=== PATIENT | female | born 1990 | race Caucasian/White ===

== ENCOUNTER 2024-07-22 13:30 | Inpatient (IN) | payer MEDICAID, SELFPAY ==
[2024-07-22] VITALS (17 sets, daily range): BP systolic 143–214; BP diastolic 92–119; PULSE 89–116; RESP 15–23; TEMP 36.4–36.7; O2SAT 96–99; BMI 40.1
--- NOTE | 2024-07-22 13:38 | CT_ITS ---
PROCEDURE: SOFT TISSUE NECK WITH CONTRAST 07/22/2024 REASON FOR EXAM: CONCERN FOR LUDEWIG'S ANGINA TECHNIQUE: CT of the soft tissues of the neck from the orbits to the upper mediastinum with intravenous contrast. CONTRAST: Isovue-300 VOLUME: 100 mL One or more dose reduction techniques were used (e.g., Automated exposure control, adjustment of the mA and/or kV according to patient size, use of iterative reconstruction technique). RADIATION DOSE SUMMARY: CTDlvol: 17.45 mGy DLP: 702.03 mGycm COMPARISON: None FINDINGS: Airway: Midline and patent. Salivary glands: Unremarkable. Lymph nodes: No cervical lymphadenopathy. Thyroid: Unremarkable. Vasculature: Carotid arteries and internal jugular veins are unremarkable. Orbits: Unremarkable at visualized levels. Paranasal sinuses and mastoids: Grossly clear at visualized levels. Lung apices: Clear. Upper mediastinum: Visualized mediastinum is unremarkable. Bones: Unremarkable. Other: CT/Soft Tissue Neck WITH Contrast IMPRESSION: NORMAL CONTRAST-ENHANCED CT OF THE SOFT TISSUES OF THE NECK. Reading Location: [place] [id number]
--- NOTE | 2024-07-22 13:39 | EKG12_ITS ---
Test Reason : Blood Pressure : */* mmHG Vent. Rate : 105 BPM Atrial Rate : 105 BPM P-R Int : 150 ms QRS Dur : 78 ms QT Int : 348 ms P-R-T Axes : 21 36 26 degrees QTcB Int : 459 ms Sinus tachycardia Otherwise normal ECG Confirmed by Nilton Moreau ([id number]), index editor CAROLINE VELÁSQUEZ ([id number]) on 07/23/2024 10:14:53 AM Referred By: Confirmed By: Nilton Moreau
--- NOTE | 2024-07-22 13:43 | EX.ED.DYSGE1 ---
HPI History of Present Illness Chief Complaint: Edema Detail of Chief Complaint: Concern with swallowing and change in voice Informant: patient Onset/Context/Timing Onset: Today Context: Sudden Onset Timing: Continuous Quality: Complains of dental pain lower front teeth Location: Swelling noted this morning. Current Severity: Moderate Maximum Severity: Moderate Worsened by: Concern patient has Storm's angina Relieved by: Nothing Associated Symptoms Associated Symptoms: Patient is flushed. She states she is normally flushed. Blood pressure is Narrative Narrative: Patient is a 33-year-old woman. She has history of hypertension. She does not take any blood pressure medicine and 6 months. She has allergy to amoxicillin/penicillin with hives. She has been having dental pain for a couple of days. This morning she noted that she is having trouble speaking and swallowing. Patient states she has not taken her blood pressure meds 6 months. She denies headache. Eye double vision blurred vision loss of vision. She denies chest discomfort or back pain. She denies shortness of breath or difficulty breathing. She does report nausea without vomiting diarrhea. She denies paresthesia, anesthesia or motor weakness upper or lower extremity. Denies trouble with balance or coordination. She was unaware that she had facial swelling until the triage nurse made a comment to her. Prior similar symptoms: No Recent Illness/Hospitalization: No PFSH PFSH Medical History HTN (hypertension) Home Medications ?Medication ?Instructions ?Recorded ?Last Taken ?Type gabapentin 100 mg capsule 200 mg PO .qh4 PRN pain 07/22/24 Unknown History Allergy/AdvReac Type Severity Reaction Status Date / Time amoxicillin (From Augmentin) Allergy unknown Verified 07/22/24 13:38 clavulanic acid (From Allergy unknown Verified 07/22/24 13:38 Augmentin) Social History Smoking Status: Never smoker ROS ROS ED Constitutional Constitutional ED: Denies chills, fever(s), subjective, sweats or weight loss Eyes Eyes: Denies blurry vision, change in vision or diplopia ENT ENT ED: Reports other Details: Swelling under her tongue and difficulty swallowing ; Denies ear pain, rhinorrhea or sore throat Cardiovascular Cardiovascular: Denies chest pain, orthopnea, palpitations or paroxysmal nocturnal dyspnea Respiratory/Chest Respiratory/Chest: Denies cough, dyspnea, dyspnea on exertion, orthopnea or paroxysmal nocturnal dyspnea Gastrointestinal Gastrointestinal: Reports nausea; Denies abdominal pain, diarrhea, melena or vomiting Genitourinary Genitourinary ED: Denies dysuria, hematuria or urinary frequency Musculoskeletal Musculoskeletal: Denies arthralgias or myalgias Integumentary Reports rash Neurologic Neurologic: Denies headache(s), paresthesias or weakness Endocrine Endocrinology: Denies cold intolerance or heat intolerance Hematologic/Lymphatic Hematologic/Lymphatic: Reports systems reviewed and no addt'l complaints, except as documented EXAM Physical Exam Const Vital Signs: 07/22/24 13:32 07/22/24 13:35 07/22/24 13:37 Temperature 98.1 F Temperature Source Temporal Pulse Rate 116 H Respiratory Rate 21 H Respiratory Effort Normal Non-Labored Respiratory Pattern Normal Blood Pressure 214/117 H Blood Pressure Mean 149 Pulse Ox 99 Oxygen Delivery Method Room Air 07/22/24 13:45 07/22/24 14:30 07/22/24 14:45 Temperature Temperature Source Pulse Rate 106 H 103 H 95 Respiratory Rate 16 18 22 H Respiratory Effort Respiratory Pattern Blood Pressure 187/113 H 179/115 H 170/109 H Blood Pressure Mean 132 136 126 Pulse Ox 98 97 96 Oxygen Delivery Method 07/22/24 15:00 07/22/24 15:30 07/22/24 16:00 Temperature Temperature Source Pulse Rate 96 93 93 Respiratory Rate 17 19 H 23 H Respiratory Effort Respiratory Pattern Blood Pressure 143/92 H 180/118 H 170/119 H Blood Pressure Mean 108 135 133 Pulse Ox 97 97 97 Oxygen Delivery Method 07/22/24 16:30 Temperature Temperature Source Pulse Rate 93 Respiratory Rate 21 H Respiratory Effort Respiratory Pattern Blood Pressure 177/105 H Blood Pressure Mean 124 Pulse Ox 97 Oxygen Delivery Method Positive well nourished and well developed General Appearance ED: well developed; Negative for NAD or pallor HEENT Reports moist mucous membranes HEENT Narrative: Patient has swelling under the floor of her tongue. She has very poor dentition with dental caries and periodontal disease as well as gingivitis. The floor of her mouth is very firm. There is swelling submental region. There is no drooling. Patient has swelling of her face. There is erythema of her face. There is no erythema of her neck torso or extremities. Eyes PERRL and EOMs intact bilaterally General Eye ED: Negative for pale conjunctiva or scleral icterus Neck no lymphadenopathy, supple and no JVD Neck Narrative: Trachea is midline. There is no inspiratory expiratory stridor. Chest Wall inspection of chest normal and palpation of chest normal Resp normal respiratory effort and clear to auscultation bilaterally Cardio regular rate, regular rhythm, S1 normal heart sound, S2 normal heart sound and no murmurs GI normal to inspection, nondistended, normoactive bowel sounds, non-tender, non-distended and no masses; Negative for hepatosplenomegaly Palpation: soft Back/Spine no CVA tenderness Extremity normal to inspection General Extremety ED: Negative for edema or tenderness General Extremity: Negative for edema Neuro oriented x3, CN's II-XII intact bilaterally and no sensory deficits noted Sensorium / Orientation: alert Motor Exam: strength 5/5 throughout Psych Mood & Affect: anxious and tearful Skin Skin Narrative: Erythema of her face with soft tissue swelling. General Skin Exam: Negative for elasticity normal, jaundice or pallor MDM MDM MDM Narrative Medical decision making narrative: Patient was told I am concerned that she may have Ludewig's angina. Patient states she googled her symptoms and that was the differential. She has dental caries probable infection. There is facial swelling this may represent cellulitis. Because of her allergy to penicillin she was treated with clindamycin. Will obtain CT of the neck with IV contrast to determine if she has an abscess and if this is amenable to being drained. Her blood pressure is also elevated due to noncompliance of her meds. Will monitor this. If there is no improvement we will treat her blood pressure with IV antihypertensive meds. She has been made n.p.o. Nurse was asked to bring the airway cart into the room. History & Record Review Additional record(s) reviewed:: No prior records Lab Data Attestation: I reviewed the patient's lab results. Lab results narrative: White count is elevated 12.7 thousand. There is no shift. Labs: Laboratory Results - last 24 hr 07/22/24 07/22/24 07/22/24 13:44 15:10 15:12 WBC 12.7 H RBC 5.46 H Hgb 15.5 H Hct 45.4 MCV 83.2 MCH 28.4 MCHC 34.1 RDW Std Deviation 41.6 RDW Coeff of Mame 13.9 Plt Count 400 MPV 10.2 Immature Gran % (Auto) 0.400 Neut % (Auto) 68.0 Lymph % (Auto) 19.3 [place] % (Auto) 9.8 Eos % (Auto) 1.6 Baso % (Auto) 0.9 Absolute Neuts (auto) 8.7 H Absolute Lymphs (auto) 2.46 Nucleated RBC % 0 Sodium 135 Potassium 3.9 Chloride 100 Carbon Dioxide 24.6 Anion Gap 11 BUN 9 Creatinine 0.76 Estim Creat Clear Calc 137.34 Est GFR (MDRD) Non-Af 106 BUN/Creatinine Ratio 12.4 Glucose 167 H Hemoglobin A1c 8.5 H Lactic Acid 1.6 Calcium 9.6 Total Bilirubin 0.49 AST 39 H ALT 42 H Alkaline Phosphatase 117 H Total Protein 8.1 Albumin 4.2 Globulin 3.9 Albumin/Globulin Ratio 1.1 Urine Color Straw Urine Clarity Sl. Cloudy Urine pH 6.5 Ur Specific [place] 1.010 Urine Protein 15 H Urine Glucose (UA) Normal Urine Ketones Negative Urine Occult Blood Negative Urine Nitrite Negative Urine Bilirubin Negative Urine Urobilinogen Normal Ur Leukocyte Esterase 500 H Urine RBC 0 SEEN Urine WBC 25-50 SEEN Ur Squamous Epith Cells 5-10 SEEN Ur Transition Epith Cell 0-5 SEEN Urine Bacteria 1+ Urine Mucus 0 SEEN Radiography Diagnostic Testing: Clinical Impression(s) from Imaging Studies Soft Tissue Neck CT 07/22/24 13:38 IMPRESSION: NORMAL CONTRAST-ENHANCED CT OF THE SOFT TISSUES OF THE NECK. Reading Location: [place] [id number] was reviewed. I see no evidence of abscess. I do not see any obvious inflammatory changes. The radiologist was contacted because clinically I am concerned patient has an infection. He informed me that he looked again at the scan and there is no abnormality. EKG Initial EKG: Attestation: I personally reviewed and interpreted this EKG as follows: Interpretation: Sinus Tachycardia Management Discussion w/another healthcare provider: Hospitalist (Spoke with the hospitalist. Full admit MedSurg. He was made aware of patient's history, physical and results. He also was made aware that she is not been compliant with her blood pressure medication.) Discharge Plan Dx/Rx/DC Orders Clinical Impression: Abscess, dental, Dental caries extending into pulp, Dental caries extending into dentine, Periodontal disease, Gingivitis, Hypertensive urgency, Noncompliance with medication regimen, Sinus tachycardia seen on pvc monitor Disposition Disposition: Acute Care Hospital [facility] Discharge Date/Time: 07/22/24 18:27
[2024-07-22 13:57] LABS: Absolute Lymphocyte Count 2.46 X10^3/uL (0.83-4.51); Absolute Neutrophil Count 8.7 X10^3/uL (2.0-7.7); Basophil# 0.12 X10^3/uL; Basophil% 0.9 % (0-1); Eosinophils% 1.6 % (0-5); Hematocrit 45.4 % (37-47); Hemoglobin 15.5 g/dL (12.0-15.0); Lymphocyte # 2.46 X10^3/ul (0.83-4.51); Lymphocyte % 19.3 % (19-41); Mean Corp Hgb Conc 34.1 g/dL (32-36); Mean Corpuscular Hgb 28.4 pg (27.0-32.0); Mean Corpuscular Volume 83.2 fL (81-99); Mean Platelet Vol. 10.2 fl (6.2-12.0); Monocyte# 1.25 X10^3/uL; Monocyte% 9.8 % (0-10); NRBC Flagged by Analyzer 0 % (0-5); Neutrophil # 8.66 X10^3/uL (2.7-7.7); Platelet Count 400 K/mm3 (150-450); RBC Distribution Width CV 13.9 % (11.6-14.6); RBC Distribution Width SD 41.6 fl (35.1-43.9); Red Blood Count 5.46 M/mm3 (4.2-5.4); White Blood Count 12.7 K/mm3 (4.4-11.0)
[2024-07-22] MEDS: Clindamycin 900 MG/50 ML BAG 75 MG IV (14:17)
[2024-07-22 15:08] LABS: Lactic Acid 1.6 mmol/L (0.0-2.0)
[2024-07-22 15:17] LABS: Mucous, Urine 0 SEEN /hpf (<or=2+); Red Blood Cells-Urine 0 SEEN /hpf (0-5)
[2024-07-22 15:32] LABS: Color, Urine Straw (Yellow); Glucose, Dipstick Normal (Normal); Ketone-Dipstick Negative (Negative); Leukocyte Esterase-Dipstick 500 /ul (Negative); Nitrite-Dipstick Negative (Negative); Occult Blood-Urine Negative /ul (Negative); Protein-Dipstick 15 mg/dl (Negative); Urine Bilirubin Dipstick Negative (Negative); Urine Clarity Sl. Cloudy (Clear); Urine Urobilinogen Normal (Normal); Urine pH 6.5 (5.0 - 8.0)
[2024-07-22 15:44] LABS: ALB/GLOB Ratio 1.1 RATIO (0.9-2.4); AST(SGOT) 39 U/L (<=31); Alanine Aminotransfer ALT/SGPT 42 U/L (<=34); Albumin, Serum 4.2 g/dL (3.5-5.0); Alkaline Phosphatase 117 U/L (35-104); Anion Gap 11 (5-15); BUN 9 mg/dL (4-19); BUN/Creat Ratio 12.4 RATIO (10-20); Calcium,Total 9.6 mg/dL (7.6-11.0); Carbon Dioxide 24.6 mmol/L (21.0-32.0); Chloride 100 mmol/L (98-108); Creatinine, Serum 0.76 mg/dL (0.70-1.20); EST Glomerular Filtration Rate 106 (>60); Estimated Creatinine Clearance 137.34 ml/min (50-250); Globulin 3.9 g/dL (2.2-4.2); Glucose 167 mg/dL (70-99); Potassium 3.9 mmol/L (3.3-5.1); Protein, Total 8.1 g/dL (5.9-8.4); Sodium Level 135 mmol/L (133-145); Total Bilirubin 0.49 mg/dL (0.00-1.30)
--- NOTE | 2024-07-22 16:54 | HP.PCM.HOS_ITS ---
HPI - General General Date of Admission: 07/22/24 Date of Service: 07/22/24 Chief Complaint: Dental infection with difficulty swallowing HPI Narrative MIRACLE ALMANZAR, is a 33 F who presented to [facility] ED on 07/22/2024 with concern for dental infection and difficulty with swallowing. I saw the patient at bedside in the ED. Patient has history of periodontal disease with dental caries. She has now been having worsening dental pain for the past few days. Today she noticed that she was having difficulty with swallowing and speaking so she came in for further evaluation. She has history of hypertension as well but has not taken her home blood pressure medications for over 6 months. She denies any chest pain or shortness of breath. Was noted by ED physician to have oropharyngeal fullness on physical exam. However, CT soft tissue neck showed no signs of swelling or concern for Storm's angina. Given her symptoms and concern for possibly developing Storm's angina, she was given a dose of IV antibiotics and hospitalist was contacted for admission. When I saw the patient, she had facial flushing noted but otherwise sitting back comfortably in bed, conversing normally and in no acute distress. Noted that she did feel slightly improved now compared to earlier today. She still has not eaten or drink anything today for fear of choking. Her last food was yesterday. She denies any headache or dizziness. Denies any fevers or chills. No other acute concerns at this time. [facility] Medical History HTN (hypertension) Home Medications ?Medication ?Instructions ?Recorded ?Last Taken ?Type gabapentin 100 mg capsule 200 mg PO .qh4 PRN pain 07/12 03/07 Unknown History Allergy/AdvReac Type Severity Reaction Status Date / Time amoxicillin (From Augmentin) Allergy unknown Verified 07/22/24 13:38 clavulanic acid (From Allergy unknown Verified 07/22/24 13:38 Augmentin) Social History Smoking Status: Former smoker ROS Constitutional Constitutional: Reports fatigue; Denies chills, fever(s) or weakness Eyes Eyes: Denies blurry vision or change in vision ENT HEENT: Reports dysphagia, sore throat and other Cardiovascular Cardiovascular: Denies chest pain, dyspnea on exertion, edema or lightheadedness Respiratory/Chest Respiratory/Chest: Denies cough or shortness of breath at rest Gastrointestinal Gastrointestinal: Denies abdominal pain Musculoskeletal Musculoskeletal: Denies arthralgias or myalgias Vital Signs Vital Signs Vital Signs: 07/22/24 13:32 07/22/24 13:35 07/22/24 13:37 Temperature 98.1 F Temperature Source Temporal Pulse Rate 116 H Respiratory Rate 21 H Respiratory Effort Normal Non-Labored Respiratory Pattern Normal Blood Pressure 214/117 H Blood Pressure Mean 149 Pulse Ox 99 Oxygen Delivery Method Room Air 07/22/24 13:45 07/22/24 14:30 07/22/24 14:45 Temperature Temperature Source Pulse Rate 106 H 103 H 95 Respiratory Rate 16 18 22 H Respiratory Effort Respiratory Pattern Blood Pressure 187/113 H 179/115 H 170/109 H Blood Pressure Mean 132 136 126 Pulse Ox 98 97 96 Oxygen Delivery Method 07/22/24 15:00 07/22/24 15:30 07/22/24 16:00 Temperature Temperature Source Pulse Rate 96 93 93 Respiratory Rate 17 19 H 23 H Respiratory Effort Respiratory Pattern Blood Pressure 143/92 H 180/118 H 170/119 H Blood Pressure Mean 108 135 133 Pulse Ox 97 97 97 Oxygen Delivery Method 07/22/24 16:30 Temperature Temperature Source Pulse Rate 93 Respiratory Rate 21 H Respiratory Effort Respiratory Pattern Blood Pressure 177/105 H Blood Pressure Mean 124 Pulse Ox 97 Oxygen Delivery Method Weight Weight: 116.12 kg Body Mass Index (BMI) 40.1 Physical Exam Const alert, oriented x3 and no apparent distress Constitutional Narrative: Younger female, class III obesity, facial flushing noted, poor dentition noted, otherwise sitting up comfortably in bed, answering questions appropriately, in no acute distress. General Appearance: cooperative and comfortable HEENT normocephalic, head/scalp atraumatic, hearing grossly normal bilaterally, nasal mucous membranes and turbinates normal and moist oral mucous membranes HEENT Narrative: No significant oropharyngeal erythema or swelling noted. Poor dentition but no overt abscess noted. Eyes PERRL, EOMs intact bilaterally and conjunctivae normal Neck full ROM and supple Chest inspection of chest normal Resp normal respiratory effort, normal air movement, no use of accessory muscles and clear to auscultation bilaterally Cardio regular rate, regular rhythm, no murmurs and peripheral pulses 2+ throughout GI normal to inspection, nondistended, normoactive bowel sounds, soft to palpation, non-tender and non-distended Back/Spine normal ROM Extremity normal to inspection, full ROM and no pedal edema Skin no rashes or lesions noted Psych mental status grossly normal Results Lab / Micro Data 07/22/24 13:44 07/22/24 15:12 Labs: Laboratory Results - last 24 hr 07/22/24 13:44: WBC 12.7 H, RBC 5.46 H, Hgb 15.5 H, Hct 45.4, MCV 83.2, MCH 28.4, MCHC 34.1, RDW Std Deviation 41.6, RDW Coeff of Mame 13.9, Plt Count 400, MPV 10.2, Immature Gran % (Auto) 0.400, Neut % (Auto) 68.0, Lymph % (Auto) 19.3, [place] % (Auto) 9.8, Eos % (Auto) 1.6, Baso % (Auto) 0.9, Absolute Neuts (auto) 8.7 H, Absolute Lymphs (auto) 2.46, Nucleated RBC % 0, Lactic Acid 1.6 07/22/24 15:10: Urine Color Straw, Urine Clarity Sl. Cloudy, Urine pH 6.5, Ur Specific [place] 1.010, Urine Protein 15 H, Urine Glucose (UA) Normal, Urine Ketones Negative, Urine Occult Blood Negative, Urine Nitrite Negative, Urine Bilirubin Negative, Urine Urobilinogen Normal, Ur Leukocyte Esterase 500 H 07/22/24 15:12: Sodium 135, Potassium 3.9, Chloride 100, Carbon Dioxide 24.6, Anion Gap 11, BUN 9, Creatinine 0.76, Estim Creat Clear Calc 137.34, Est GFR (MDRD) Non-Af 106, BUN/Creatinine Ratio 12.4, Glucose 167 H, Calcium 9.6, Total Bilirubin 0.49, AST 39 H, ALT 42 H, Alkaline Phosphatase 117 H, Total Protein 8.1, Albumin 4.2, Globulin 3.9, Albumin/Globulin Ratio 1.1 Imaging Radiology Impression Soft Tissue Neck CT 07/22/24 13:38 IMPRESSION: NORMAL CONTRAST-ENHANCED CT OF THE SOFT TISSUES OF THE NECK. Reading Location: [facility] Assessment & Plan Assessment/Plan (1) Periodontal disease: PLAN: Plan Patient is a 33-year-old female who presented [facility] ED on 07/22/2024 with concern for dental infection with difficulty swallowing. 1. Concern for dental infection with developing Storm's angina ? Admit under inpatient status to [facility]. CT soft tissue neck with no swelling noted or concern for Storm angina. Poor dentition noted but no overt infection noted. However, will treat with IV ceftriaxone and Flagyl for now. Will keep patient on full liquid diet and speech therapy consulted. 2. Poorly controlled hypertension ? BP elevated to the 170s 180s systolic on admission. Has previously been on an antihypertensive at home but has not taken this for over 6 months, unclear which antihypertensive agent. Will start amlodipine 5 mg daily. IV hydralazine ordered for SBP greater than 170 as well. 3. Class II obesity ? BMI 39 on admit. Encouraged weight loss. DVT prophylaxis: Lovenox CODE STATUS: Full code, verified Expected disposition: Home, 2 to 3 days Total clinical time spent by myself addressing the patient's medical issues, reviewing all the data, and collaborating with patient's care team: 55 minutes. Charges/Coding Visit Charges Inpatient E&M: 58636 Init Hosp L2
[2024-07-22 17:11] LABS: Squamous Epithelial Cells - UA 5-10 SEEN /hpf (5-10); White Blood Cells 25-50 SEEN /hpf (0-5)
[2024-07-22 17:12] LABS: Bacteria 1+ /hpf (None Seen); Transitional Epithelial - Ur 0-5 SEEN /hpf (0-5)
[2024-07-22] MEDS: Enalaprilat 1.25 MG/ML Vial 0.625 MG IV (17:24)
[2024-07-22 17:57] LABS: Hemoglobin A1c 8.5 % (<=5.6)
--- NOTE | 2024-07-22 19:08 | CM.ED ---
Social Work Reason for visit: No PCP Patient verified that she does not currently have a PCP. Patient reports to originally living in [place], then moved to [place], and then to [place]. Patient reports she has not found a PCP. [facility] provider list given. Patient also expressed need for a dentist. Dental list was also provided. No further needs identified at this time. Kianna Wilkins, [employer] PROGRAMMER ANALYST, [employer] VAT TENDER
[2024-07-22] MEDS: Ceftriaxone 2 GM in 0.9% Normal Saline (50mL MB+) 50 ML IV (20:15)
[2024-07-22] MEDS: 0.9% Normal Saline (250mL Bag) 250 ML 15 ML IV (20:15)
[2024-07-22] MEDS: metroNIDAZOLE 500 MG/100 ML BAG 100 MG IV (21:11)
[2024-07-22] MEDS: Acetaminophen 325 MG Tablet 650 MG PO (23:35)
[2024-07-23] MEDS: amLODIPine 5 MG Tablet PO ×2 (01:19→09:42)
[2024-07-23] MEDS: metroNIDAZOLE 500 MG/100 ML BAG 100 MG IV ×3 (06:24→21:12)
[2024-07-23 06:31] LABS: Hematocrit 46.3 % (37-47); Hemoglobin 15.8 g/dL (12.0-15.0); Mean Corp Hgb Conc 34.1 g/dL (32-36); Mean Corpuscular Hgb 28.7 pg (27.0-32.0); Mean Corpuscular Volume 84.2 fL (81-99); Mean Platelet Vol. 10.1 fl (6.2-12.0); Platelet Count 353 K/mm3 (150-450); RBC Distribution Width CV 13.8 % (11.6-14.6); RBC Distribution Width SD 42.7 fl (35.1-43.9); White Blood Count 8.8 K/mm3 (4.4-11.0)
[2024-07-23 06:58] LABS: Anion Gap 12 (5-15); BUN 6 mg/dL (4-19); BUN/Creat Ratio 9.2 RATIO (10-20); Calcium,Total 9.4 mg/dL (7.6-11.0); Carbon Dioxide 24.2 mmol/L (21.0-32.0); Chloride 101 mmol/L (98-108); EST Glomerular Filtration Rate 116 (>60); Estimated Creatinine Clearance 149.11 ml/min (50-250); Glucose 187 mg/dL (70-99); Sodium Level 137 mmol/L (133-145)
[2024-07-23 09:17] VITALS: BP 177/103; PULSE 98; RESP 16; TEMP 36.6; O2SAT 99
[2024-07-23 09:36] VITALS: O2SAT 98
[2024-07-23] MEDS: Ceftriaxone 2 GM in 0.9% Normal Saline (50mL MB+) 50 ML IV (09:42)
--- NOTE | 2024-07-23 11:12 | PCM.PN.HOSP ---
Reason for Visit Reason for Visit: Diagnoses Periodontal disease, unspecified (07/22/24) Subjective Subjective Saw patient at bedside this morning. Patient appeared similar today to yesterday. Has been tolerating full liquid diet well. Has not worked with speech therapy yet. Does continue to feel some fullness/swelling of her throat and this is concerning for her, but it has not worsened at all since yesterday. No other new concerns today. Objective Data Objective Data Vital Signs: Vital Signs Temp Pulse Resp BP Pulse Ox O2 Del Method 97.9 F 98 16 177/103 H 98 Room Air 07/23/24 09:17 07/23/24 09:17 07/23/24 09:17 07/23/24 09:17 07/23/24 09:36 07/23/24 09:36 Oxygen Delivery Method Room Air Weight: 116.12 kg Body Mass Index (BMI) 40.1 Intake & Output: Intake and Output for Last 24 Hours 07/21/24 07/22/24 07/23/24 23:59 23:59 23:59 Intake Total 200 / 900 1052.25 / 1052.25 Balance 200 / 900 1052.25 / 1052.25 Lab / Micro Data 07/23/24 06:17 07/23/24 06:17 Labs: Laboratory Results - last 24 hr 07/22/24 13:44: WBC 12.7 H, RBC 5.46 H, Hgb 15.5 H, Hct 45.4, MCV 83.2, MCH 28.4, MCHC 34.1, RDW Std Deviation 41.6, RDW Coeff of Mame 13.9, Plt Count 400, MPV 10.2, Immature Gran % (Auto) 0.400, Neut % (Auto) 68.0, Lymph % (Auto) 19.3, Rich % (Auto) 9.8, Eos % (Auto) 1.6, Baso % (Auto) 0.9, Absolute Neuts (auto) 8.7 H, Absolute Lymphs (auto) 2.46, Nucleated RBC % 0, Hemoglobin A1c 8.5 H, Lactic Acid 1.6 07/22/24 15:10: Urine Color Straw, Urine Clarity Sl. Cloudy, Urine pH 6.5, Ur Specific Haskell 1.010, Urine Protein 15 H, Urine Glucose (UA) Normal, Urine Ketones Negative, Urine Occult Blood Negative, Urine Nitrite Negative, Urine Bilirubin Negative, Urine Urobilinogen Normal, Ur Leukocyte Esterase 500 H, Urine RBC 0 SEEN, Urine WBC 25-50 SEEN, Ur Squamous Epith Cells 5-10 SEEN, Ur Transition Epith Cell 0-5 SEEN, Urine Bacteria 1+, Urine Mucus 0 SEEN 07/22/24 15:12: Sodium 135, Potassium 3.9, Chloride 100, Carbon Dioxide 24.6, Anion Gap 11, BUN 9, Creatinine 0.76, Estim Creat Clear Calc 137.34, Est GFR (MDRD) Non-Af 106, BUN/Creatinine Ratio 12.4, Glucose 167 H, Calcium 9.6, Total Bilirubin 0.49, AST 39 H, ALT 42 H, Alkaline Phosphatase 117 H, Total Protein 8.1, Albumin 4.2, Globulin 3.9, Albumin/Globulin Ratio 1.1 07/23/24 06:17: WBC 8.8, RBC 5.50 H, Hgb 15.8 H, Hct 46.3, MCV 84.2, MCH 28.7, MCHC 34.1, RDW Std Deviation 42.7, RDW Coeff of Mame 13.8, Plt Count 353, MPV 10.1, Sodium 137, Potassium 4.0, Chloride 101, Carbon Dioxide 24.2, Anion Gap 12, BUN 6, Creatinine 0.70, Estim Creat Clear Calc 149.11, Est GFR (MDRD) Non-Af 116, BUN/Creatinine Ratio 9.2 L, Glucose 187 H, Calcium 9.4 Radiography Diagnostic Testing: Radiology Impression Soft Tissue Neck CT 07/22/24 13:38 IMPRESSION: NORMAL CONTRAST-ENHANCED CT OF THE SOFT TISSUES OF THE NECK. Reading Location: [facility] Physical Exam Const alert, oriented x3 and no apparent distress Constitutional Narrative: Younger female, class III obesity, poor dentition noted, energy improved today, sitting up comfortably in bed, answering questions appropriately, in no acute distress. General Appearance: cooperative and comfortable HEENT normocephalic, head/scalp atraumatic, hearing grossly normal bilaterally, nasal mucous membranes and turbinates normal and moist oral mucous membranes HEENT Narrative: No significant oropharyngeal erythema or swelling noted. Poor dentition but no overt abscess noted. Stable. Eyes PERRL, EOMs intact bilaterally and conjunctivae normal Neck full ROM and supple Chest inspection of chest normal Resp normal respiratory effort, normal air movement, no use of accessory muscles and clear to auscultation bilaterally Cardio regular rate, regular rhythm, no murmurs and peripheral pulses 2+ throughout GI normal to inspection, nondistended, normoactive bowel sounds, soft to palpation, non-tender and non-distended Back/Spine normal ROM Extremity normal to inspection, full ROM and no pedal edema Skin no rashes or lesions noted Psych mental status grossly normal Assessment & Plan Assessment/Plan (1) Periodontal disease: PLAN: Plan Patient is a 33-year-old female who presented [facility] ED on 07/22/2024 with concern for dental infection with difficulty swallowing. 1. Concern for dental infection with developing Storm's angina ? Speech therapy consulted. CT soft tissue neck with no swelling noted or concern for Storm angina. Poor dentition noted but no overt infection noted. Has been tolerating liquid diet well. Continue treatment with IV ceftriaxone and Flagyl. Appreciate speech therapy recommendations. Hopeful that patient will be able to advance diet to regular diet soon in preparation for possible discharge home tomorrow. 2. Poorly controlled hypertension ? BP elevated to the 170s to 180s systolic on admission. Has previously been on an antihypertensive at home but has not taken this for over 6 months, unclear which antihypertensive agent. Started on amlodipine 5 mg daily with only mild improvement to the 160s systolic. Will start losartan 50 mg daily today. Continue IV hydralazine for SBP greater than 170. 3. Class II obesity ? BMI 39 on admit. Encouraged weight loss. 4. New onset type 2 diabetes mellitus ? A1c 8.5% on admit. Glucose values have been in the 160s to 180s on BMP. Will hold on any treatment during this hospitalization but recommend close outpatient follow-up with her primary care doctor on discharge. DVT prophylaxis: Lovenox CODE STATUS: Full code, verified Expected disposition: Home, 1 to 2 days Total clinical time spent by myself addressing the patient's medical issues, reviewing all the data, and collaborating with patient's care team: 35 minutes. Charges/Coding Visit Charges Inpatient E&M: 09220 Subs Hosp L2
--- NOTE | 2024-07-23 12:45 | CASEMGMT ---
LOPEZ BAIG Assessment: Face to Face with pt for initial transition planning/care coordination assessment. LOPEZ BAIG introduced self and role at [facility], pt voices understanding and consents to assessment. Pt is A&O x4 and answers all questions appropriately at this time. Pt sitting up in bed in no distress. Care providers, pharmacy, and demographics verified/updated. Admitting Dx: dental infection with concern for developing ludwigs Strata Score: 1 PCP:Pt provided local healthcare directory pamphlet from ER. Denies need for assistance with setting up PCP. Specialists:Denies Preferred Pharmacy: [facility] Insurance: [facility] Prescription Benefit: yes LNOK: Uri Hall, dtr's father Living Arrangements: Pt lives with her dtr, dtr's father, nephew, nephew's and their dtr in a two story home with 1 step to enter. Pt reports she is I in ADL/IADLs and denies concerns at home. Transportation: Pt drives self and denies concerns with transportation. DME:Denies HHC/SNF: Denies hx of Pt states no concerns with going home at time of dc. Pt states she just moved here a week and a half ago from [place]. She has not had time to establish with new healthcare providers. Pt states no further concerns/needs. CM to follow. Advised pt to ask CM if any further questions/concerns/needs arise, voices understanding. Pt Goal: Home Plan: Home Guido MARROQUIN CM
[2024-07-23] MEDS: Losartan Potassium 50 MG Tablet PO (13:51)
[2024-07-23 15:17] VITALS: BP 168/110; PULSE 100; RESP 16; TEMP 36.5; O2SAT 100
[2024-07-23 20:07] VITALS: BP 159/90; PULSE 95; RESP 16; TEMP 36.6; O2SAT 96
[2024-07-23] MEDS: Acetaminophen 325 MG Tablet 650 MG PO (22:25)
[2024-07-24] MEDS: metroNIDAZOLE 500 MG/100 ML BAG 100 MG IV (05:01)
[2024-07-24 05:03] VITALS: BP 156/76; PULSE 95; RESP 15; TEMP 36.5; O2SAT 97
[2024-07-24 08:34] VITALS: BP 148/76; PULSE 96; RESP 16; TEMP 36.5; O2SAT 98
[2024-07-24] MEDS: Losartan Potassium 50 MG Tablet PO (08:47)
[2024-07-24] MEDS: amLODIPine 5 MG Tablet PO (08:47)
[2024-07-24] MEDS: Ceftriaxone 2 GM in 0.9% Normal Saline (50mL MB+) 50 ML IV (08:48)
--- NOTE | 2024-07-24 10:06 | DS.PCM_ITS ---
Providers Date of Admission: 07/22/24 Primary Care Physician: Leatha Primary Care Phys Reason For Visit: DENTAL INFECTIONW/ CONCERN FOR DEVELOPING LUDWIGS Diagnosis Discharge Diagnosis (1) Periodontal disease: Status: Acute Code(s): K05.6 - Periodontal disease, unspecified Plan Patient is a 33-year-old female who presented [facility] ED on 07/22/2024 with concern for dental infection with difficulty swallowing. 1. Concern for dental infection with developing Storm's angina ? Speech therapy consulted. CT soft tissue neck with no swelling noted or concern for Storm angina. Poor dentition noted but no overt infection noted. Has been tolerating liquid diet well. Continue treatment with IV ceftriaxone and Flagyl. Appreciate speech therapy recommendations. Hopeful that patient will be able to advance diet to regular diet soon in preparation for possible discharge home tomorrow. 2. Poorly controlled hypertension ? BP elevated to the 170s to 180s systolic on admission. Has previously been on an antihypertensive at home but has not taken this for over 6 months, unclear which antihypertensive agent. Started on amlodipine 5 mg daily with only mild improvement to the 160s systolic. Will start losartan 50 mg daily today. Continue IV hydralazine for SBP greater than 170. 3. Class II obesity ? BMI 39 on admit. Encouraged weight loss. 4. New onset type 2 diabetes mellitus ? A1c 8.5% on admit. Glucose values have been in the 160s to 180s on BMP. Will hold on any treatment during this hospitalization but recommend close outpatient follow-up with her primary care doctor on discharge. DVT prophylaxis: Lovenox CODE STATUS: Full code, verified Expected disposition: Home, 1 to 2 days Total clinical time spent by myself addressing the patient's medical issues, reviewing all the data, and collaborating with patient's care team: 35 minutes. Medications at Discharge Home Medications gabapentin 100 mg capsule 200 mg PO .qh4 PRN pain 07/22/24 Weight / BMI Weight Weight: 116.12 kg Body Mass Index (BMI) 40.1 ABG / Lab / Microbiology Data 07/23/24 06:17 07/23/24 06:17 Meaningful Use Info Ischemic Stroke Statin Dosing Therapy Reference: STATIN DOSE THERAPY REFERENCE: * Patients > 75 years receive moderate or high dose statin therapy. * Patients 75 years or YOUNGER should receive HIGH intensity statin dose unless contraindicated. You will be required to document reason for non-treatment if statin daily dose does not meet guidelines. HIGH DOSE STATIN THERAPY DAILY Atorvastatin > than or = to 40 mg Rosuvastatin > than or = to 20 mg Amlodipine + Atorvastatin > than or = to 2.5/40 mg Ezetimibe + Simvastatin 10/80 mg Simvastatin 80mg Discharge Plan Admission Admit Date/Time: 07/22/24 16:55 Attending Provider: Michael Almazan Primary Care Provider: Care Physician,No Primary Discharge Orders/Prescriptions Prescriptions: No Action gabapentin 100 mg capsule 200 mg PO .qh4 PRN (Reason: pain) Rx Instructions: Pt takes q4 to 6h Referrals / Follow Up: Care Physician,No Primary [Primary Care Provider] -
--- NOTE | 2024-07-24 10:06 | DCINST_ITS ---
Discharge Instructions Diet Discharge Diet: 1999 Calorie Control Diet and Carb Control Diet DC O2, CPAP, BIPAP needs Home O2 Discharge instructions: No Dressing / Incision Discharge Activity: No Restrictions Follow Up Care Test Results: Test results from this visit will be discussed in further detail at your follow- up appointment, if applicable. Discharge Plan Admission Admit Date/Time: 07/22/24 16:55 Primary Reason for Your Visit: dental infection w/ throat swelling Attending Provider: Michael Almazan Primary Care Provider: Care Physician,No Primary Discharge Orders/Prescriptions Prescriptions: New losartan 50 mg Tablet 50 mg PO DAILY 30 Days Qty: 30 2RF amlodipine 5 mg Tablet 5 mg PO DAILY 30 Days Qty: 30 2RF metformin [Glucophage XR] 500 mg tablet extended release 24 hr 500 mg PO BID 30 Days Qty: 60 0RF levofloxacin 750 mg tablet 750 mg PO DAILY 5 Days Qty: 5 0RF Discontinued gabapentin 100 mg capsule 200 mg PO .qh4 PRN (Reason: pain) Rx Instructions: Pt takes q4 to 6h Referrals / Follow Up: [facility] [Provider Group] Care Physician,No Primary [Primary Care Provider] - Disposition Disposition (needs filled in before D/C Order can be placed): Home, Self Care
--- NOTE | 2024-07-24 10:06 | PCM.DC.SUM ---
Providers Date of Admission: 07/22/24 Date of Discharge: 07/24/24 Primary Care Physician: No Primary Care Phys Reason For Visit: DENTAL INFECTIONW/ CONCERN FOR DEVELOPING LUDWIGS Diagnosis Discharge Diagnosis (1) Periodontal disease: Status: Acute Code(s): K05.6 - Periodontal disease, unspecified Medications at Discharge Home Medications amlodipine 5 mg tablet 5 mg PO DAILY 30 days #30 tabs 07/24/24 levofloxacin 750 mg tablet 750 mg PO DAILY 5 days #5 tabs 07/24/24 losartan 50 mg tablet 50 mg PO DAILY 30 days #30 tabs 07/24/24 metformin 500 mg tablet,extended release 24 hr (Glucophage XR) 500 mg PO BID 30 days #60 tabs 07/24/24 Hospital Course Operations None Procedures - (CT soft tissue neck) Summary of Care Provided Minutes Spent on Discharge: 35 Hospital Course: Patient is a 33-year-old female who presented [facility] ED on 07/22/2024 with concern for dental infection with difficulty swallowing. Hospital course as noted below. Patient discharged home in stable condition on 07/24. 1. Dental infection with concern for Storm angina, improving ? Speech therapy followed. CT soft tissue neck with no swelling noted or concern for Storm angina. Poor dentition noted. Worked speech therapy on 07/23 and tolerated regular diet without issue. Treated with IV ceftriaxone Flagyl while inpatient with improvement. Discharged on Levaquin to complete 7-day course of antibiotics total. 2. Poorly controlled hypertension ? BP elevated to the 170s to 180s systolic on admission. Had previously been on an antihypertensive at home but had not taken this for over 6 months, unclear which antihypertensive agent. Initiated on amlodipine 5 mg daily and losartan 50 mg daily while inpatient with improvement to the 130s to 140s systolic. Patient agreeable to starting these antihypertensive agents on discharge, prescription sent. Recommended patient obtain blood pressure cuff and check her blood pressure on a daily basis. Patient will also need to establish with a PCP for close outpatient follow-up. 3. Class II obesity ? BMI 39 on admit. Encouraged weight loss. 4. New onset type 2 diabetes mellitus ? A1c 8.5% on admit. Glucose values ran in the high 100s during hospitalization. Patient notably stated that she had been on metformin in the past and has strong family history of diabetes. Discharged on metformin ER 500 mg twice daily. Recommended she establish with PCP for close outpatient follow-up and up titration of metformin versus addition of other agents for improved blood glucose control as needed. Total clinical time spent by myself addressing the patient's medical issues, reviewing all the data, and collaborating with patient's care team: 35 minutes. Physical Exam Const alert, oriented x3 and no apparent distress Constitutional Narrative: Younger female, class III obesity, poor dentition noted, energy improved from admission, sitting up comfortably in bed, answering questions appropriately, in no acute distress. General Appearance: cooperative and comfortable HEENT normocephalic, head/scalp atraumatic, hearing grossly normal bilaterally, nasal mucous membranes and turbinates normal and moist oral mucous membranes HEENT Narrative: No significant oropharyngeal erythema or swelling noted. Poor dentition but no overt abscess noted. Stable. Eyes PERRL, EOMs intact bilaterally and conjunctivae normal Neck full ROM and supple Chest inspection of chest normal Resp normal respiratory effort, normal air movement, no use of accessory muscles and clear to auscultation bilaterally Cardio regular rate, regular rhythm, no murmurs and peripheral pulses 2+ throughout GI normal to inspection, nondistended, normoactive bowel sounds, soft to palpation, non-tender and non-distended Back/Spine normal ROM Extremity normal to inspection, full ROM and no pedal edema Skin no rashes or lesions noted Psych mental status grossly normal Weight / BMI Weight Weight: 116.12 kg Body Mass Index (BMI) 40.1 ABG / Lab / Microbiology Data 07/23/24 06:17 07/23/24 06:17 D/C Instructions DC O2, CPAP, BIPAP Needs Home O2 Discharge instructions: No Meaningful Use Info Meaningful Use Meaningful Use Diagnoses (Choose all that apply): None applicable Ischemic Stroke Statin Dosing Therapy Reference: STATIN DOSE THERAPY REFERENCE: * Patients > 75 years receive moderate or high dose statin therapy. * Patients 75 years or YOUNGER should receive HIGH intensity statin dose unless contraindicated. You will be required to document reason for non-treatment if statin daily dose does not meet guidelines. HIGH DOSE STATIN THERAPY DAILY Atorvastatin > than or = to 40 mg Rosuvastatin > than or = to 20 mg Amlodipine + Atorvastatin > than or = to 2.5/40 mg Ezetimibe + Simvastatin 10/80 mg Simvastatin 80mg Discharge Plan Admission Admit Date/Time: 07/22/24 16:55 Primary Reason for Your Visit: dental infection w/ throat swelling Attending Provider: Michael Almazan Primary Care Provider: Care Physician,No Primary Discharge Orders/Prescriptions Prescriptions: New losartan 50 mg Tablet 50 mg PO DAILY 30 Days Qty: 30 2RF amlodipine 5 mg Tablet 5 mg PO DAILY 30 Days Qty: 30 2RF metformin [Glucophage XR] 500 mg tablet extended release 24 hr 500 mg PO BID 30 Days Qty: 60 0RF levofloxacin 750 mg tablet 750 mg PO DAILY 5 Days Qty: 5 0RF Discontinued gabapentin 100 mg capsule 200 mg PO .qh4 PRN (Reason: pain) Rx Instructions: Pt takes q4 to 6h Referrals / Follow Up: [facility] [Provider Group] Care Physician,No Primary [Primary Care Provider] - Disposition Disposition (needs filled in before D/C Order can be placed): Home, Self Care Charges/Coding Visit Charges Inpatient E&M: 98151 Disch Hosp >30min
--- NOTE | 2024-07-24 10:45 | CASEMGMT ---
Addendum entered by Rosibel Khanna 07/24/24 10:59: Noted pt is new DM. Per hospitalist, pt does not need to check blood sugars at this time. Original Note: Spoke with ST, pt does need ongoing ST post dc. Pt to dc this date.
== END 2024-07-24 11:55 | disposition home or self-care (01) | DRG 114 ==
LOC: ED 16:58 → MS3 18:08
PROVIDERS: Admitting Provider Hospitalist; Emergency Provider Emergency Medicine; Visit Provider Hospitalist
DX: K02.62 Dental caries on smooth surface penetrating into dentin (principal); E11.9 Type 2 diabetes mellitus without complications; I10 Essential (primary) hypertension; E66.812 Obesity, class 2; K12.2 Cellulitis and abscess of mouth; K02.63 Dental caries on smooth surface penetrating into pulp; K05.10 Chronic gingivitis, plaque induced; Z68.39 Body mass index [BMI] 39.0-39.9, adult; Z91.148 Patient's other noncompliance with medication regimen for other reason; Z79.84 Long term (current) use of oral hypoglycemic drugs; Z79.899 Other long term (current) drug therapy; Z87.891 Personal history of nicotine dependence
CPT/HCPCS: 36415; 70491; 80048; 80053; 81001; 83036; 83605; 85025; 85027; 92610; 93005; 94668; 99285; Q9967; A4216; J0696

== ENCOUNTER → 2024-08-28 | Outpatient (CLI) | payer MEDICAID, SELFPAY ==
[2024-08-28 15:21] LABS: Hematocrit 45.6 % (37-47); Hemoglobin 15.6 g/dL (12.0-15.0); Immature Granulocytes Count 0.040 X10^3/uL (0.0-0.0); Mean Corp Hgb Conc 34.2 g/dL (32-36); Mean Corpuscular Volume 84.3 fL (81-99); Mean Platelet Vol. 10.4 fl (6.2-12.0); NRBC Flagged by Analyzer 0 % (0-5); Platelet Count 416 K/mm3 (150-450); RBC Distribution Width CV 13.2 % (11.6-14.6); RBC Distribution Width SD 40.0 fl (35.1-43.9); Red Blood Count 5.41 M/mm3 (4.2-5.4); White Blood Count 9.2 K/mm3 (4.4-11.0)
[2024-08-28 16:49] LABS: AST(SGOT) 38 U/L (<=31); Alanine Aminotransfer ALT/SGPT 41 U/L (<=34); Albumin, Serum 4.1 g/dL (3.5-5.0); Alkaline Phosphatase 132 U/L (35-104); Bilirubin, Direct 0.10 mg/dL (0.00-0.30); Cholesterol 230 mg/dL (<=200); Globulin 4.1 g/dL (2.2-4.2); Low Density Lipoprotein Calc. 124 mg/dL; Triglycerides 350 mg/dL; Very Low Density Lipoprotein 70 mg/dL (5-40); cholesterol:hdl ratio screen 6.35
[2024-08-28 18:09] LABS: Hepatitis B Surface Antigen Nonreactive (Nonreactive); Hepatitis C Antibody Nonreactive (Nonreactive)
[2024-09-01 11:08] LABS: LDL, Direct 120295 150 mg/dL (0-99); QNTFERON TB Mitogen Value > 10.00 IU/mL (.); QNTFERON TB Nil Value 0.02 IU/mL (.); QNTFERON TB1+ Ag Value 0.02 IU/mL (.); QNTFERON TB2+ Ag Value 0.02 IU/mL (.); QNTIFERON TB Positive Criteria Negative (Negative)
== END | disposition home or self-care (01) ==
LOC: MTLAB 12:41
PROVIDERS: Referring Provider Physician Assistant; Visit Provider Physician Assistant
DX: L73.2 Hidradenitis suppurativa (principal)
CPT/HCPCS: 36415; 80061; 80076; 83721; 85025; 86480; 86705; 86706; 86803; 87340